=== PATIENT | female | born 1980 | race Two or more races ===

== ENCOUNTER → 2019-12-09 11:32 | Outpatient (CLI) | payer OTHER, SELFPAY ==
--- NOTE | ~2019-12-09 | US_ITS ---
EXAMINATION: US pelvic complete w TV DATE: 12/09/2019 13:58 INDICATION: Pelvic pain Comparison:No prior studies for comparison. TECHNIQUE: Multiple transabdominal and endovaginal sonographic images of the pelvis performed. FINDINGS: The uterus measures 8.7 x 4.1 x 5.7 cm. The endometrial complex measures 1.2 cm. The right ovary measures 3.7 x 2.6 x 4.1 cm and the left ovary measures 3.1 x 2.8 x 3.1 cm. There is a 2.1 cm right ovarian cyst. There is free fluid in the pelvis. There are no abnormal masses seen on either side. IMPRESSION: 1. Mild endometrial thickening measuring 1.2 cm. 2: 2.1 cm right ovarian cyst. Reviewed, dictated and finalized at location A.
--- NOTE | ~2019-12-09 | US_ITS ---
US abdomen complete DATE: 12/09/2019 12:09 INDICATION: Flank pain for 6 months. TECHNIQUE: Real time imaging of the abdomen. COMPARISON: 01/10/2016 CT abdomen pelvis FINDINGS: No hepatic, splenic, pancreatic or renal space-occupying mass lesion is evident. No gallsto bhaskar, gallbladder wall thickening or abnormal pericholecystic fluid collection. Negative sonographic M urphy's sign. The common bile duct measures 4 mm. No hydronephrosis. Normal caliber of the abdominal aorta. IMPRESSION: Negative examination Reviewed, dictated and finalized at Location A. Reviewed, dictated and finalized at location B. IMPRESSION: Negative examination
== END ==
PROVIDERS: PCP Emergency Medicine; Visit Provider Emergency Medicine
DX: R10.2 Pelvic and perineal pain (principal); N83.201 Unspecified ovarian cyst, right side
CPT/HCPCS: 76700; 76830; 76856

== ENCOUNTER → 2019-12-23 09:07 | Outpatient (CLI) | payer OTHER, SELFPAY ==
--- NOTE | ~2019-12-23 | CT_ITS ---
EXAMINATION: CT abdomen pelvis wo con DATE: 12/23/2019 09:25 INDICATION: Generalized abdominal and pelvic pain, left flank pain. Abnormal lab tests. TECHNIQUE: Computed tomography (CT) of the abdomen and pelvis was performed without intravenous contr ast. Automated exposure control and iterative reconstruction technique were employed. Exam dose: 450 .38 mGy-cm total exam DLP. COMPARISON: 01/10/2016 CT abdomen pelvis 12/09/2019 abdominal ultrasound complete 12/09/2019 pelvic ultrasound FINDINGS: The lung bases are clear of infiltrate or consolidation. Normal heart size. No pericardial or pleural effusion. The liver, gallbladder, bile ducts, pancreas, pancreatic duct, spleen and adrenal glands are unremark able. No renal mass lesion or urinary tract calculus or hydroureteronephrosis is evident on this limited no ncontrast examination. The urinary bladder, uterus and adnexal areas are unremarkable. Normal caliber of the abdominal aorta. No intraperitoneal, retroperitoneal or pelvic mass lesion or a denopathy or ascites. The appendix appears normal. There is a prominent amount of fecal material within the colon. No bowel obstruction, bowel wall thickening, pneumatosis or intraperitoneal free air is detected. Small fat-containing umbilical hernia. Included skeletal structures are unremarkable. IMPRESSION: No urinary tract calculus or hydroureteronephrosis or other significant abnormality the abdomen or pelvis Reviewed, dictated and finalized at Location A. Reviewed, dictated and finalized at location B. IMPRESSION: No urinary tract calculus or hydroureteronephrosis or other signif icant abnormality the abdomen or pelvis
== END ==
PROVIDERS: PCP Emergency Medicine; Visit Provider Emergency Medicine
DX: R10.9 Unspecified abdominal pain (principal)
CPT/HCPCS: 74176

== ENCOUNTER 2021-09-30 13:59 | Emergency (ER) | payer BC, SELFPAY ==
[2021-09-30] VITALS (68 sets, daily range): BP systolic 97–122; BP diastolic 57–72; PULSE 73–106; RESP 10–20; O2SAT 98–100
--- NOTE | ~2021-09-30 | CT_ITS ---
EXAMINATION: CT brain wo con DATE: 09/30/2021 15:03 INDICATION: Altered mental status. Overdose. TECHNIQUE: Computed tomography (CT) of the head was performed without intravenous contrast. The mA wa s adjusted according to patient size. Iterative reconstruction technique was employed. The dose-lengt h product was 605.33 mGy-cm. COMPARISON: None FINDINGS: There is no intracranial hemorrhage, acute infarction, or abnormal intracranial mass lesion . The ventricles are normal in size. The orbits are normal. There is mild mucosal thickening in the p aranasal sinuses. The mastoid air cells are normal. IMPRESSION: 1. Normal brain. Reviewed, dictated and finalized at location B. IMPRESSION: 1. Normal brain.
--- NOTE | 2021-09-30 14:02 | PC.NURSE ---
Java Development Team Lead saw patient being brought in by family member. Patient was lying her head on family member shoulder and dragging her feet. [employer] Team Lead assisted patient into a wheelchair and registered patient based off family member's given information. Patient only responsive to painful stimuli. Patient would only open eyes to hard sternal rub. [employer] Development Team Lead called ADAIR Riley, charge nurse and patient taken back by ADAIR Wright to room 14.
--- NOTE | 2021-09-30 14:07 | ECG_ITS ---
Measurements Intervals [place] Rate: 84 P: 71 ID: 131 QRS: 58 QRSD: 85 T: 51 QT: 361 QTc: 427 Interpretive Statements SINUS RHYTHM POSSIBLE LEFT ATRIAL ENLARGEMENT BASELINE ARTIFACT- I, III BORDERLINE ECG Electronically Signed On 09-30-2021 14:26:39 CDT by Brooks Currie D.O.
[2021-09-30 14:15] LABS: Basophils Percent Auto 0.2 % (0.2-1.2); Eosinophils Percent Auto 0.3 % (0-4.4); Hematocrit 38.9 % (37.0-47.0); Hemoglobin 12.5 g/dL (12.0-15.0); Immature Granulocyte Absolute 0.03 K/mm3 (0.00-0.031); Immature Granulocyte Percent A 0.3 % (0-0.5); Lymphocytes Absolute Auto 1.48 K/mm3 (0.9-3.2); Lymphocytes Percent Auto 15.5 % (18.3-44.2); Mean Corpuscular HGB Conc 32.1 g/dl (32-36); Mean Corpuscular Hemoglobin 30.1 pg (26-34); Mean Corpuscular Volume 93.7 fl (80-100); Mean Platelet Volume 11.9 fl (7.4-10.4); Monocytes Absolute Auto 0.6 K/mm3 (0.1-0.6); Monocytes Percent Auto 6.1 % (2.6-8.5); Neutrophils Absolute Auto 7.4 K/mm3 (1.3-6.7); Neutrophils Percent Auto 77.6 % (45.5-73.1); Platelet Count Result 224 k/mm3 (150-375); Red Blood Count 4.15 M/mm3 (4.2-5.4); Red Cell Distribution Width 13.2 % (11.5-14.5); White Blood Count 9.5 K/mm3 (4.5-10.0)
[2021-09-30 14:24] LABS: Glucose Point of Care 81 mg/dl (65-105)
[2021-09-30 14:31] LABS: Alanine Aminotransferase 15 U/L (4-35); Albumin Level 4.6 g/dL (3.5-5.1); Alkaline Phosphatase 58 U/L (38-126); Anion Gap 8 mmol/L (8-16); Aspartate Amino Transferase 26 U/L (14-36); Bilirubin,Total 0.3 mg/dL (0.2-1.3); Blood Urea Nitrogen 9 mg/dL (7-17); Calcium 9.4 mg/dL (8.4-10.2); Carbon Dioxide 25 mmol/L (22-30); Chloride 104 mmol/L (98-107); Estimated CRCL calculation 76 ml/min; Estimated Glomerular Filt Rate > 60; Glucose 99 mg/dL (65-110); Potassium 4.1 mmol/L (3.4-5.0); Sodium 137 mmol/L (137-145)
[2021-09-30 14:32] LABS: Acetaminophen 29 ug/mL (10-30); Ethanol < 10 mg/dL (<10); Salicylate < 1.0 mg/dL (2-20)
[2021-09-30 14:34] LABS: Appearance Urine Clear (Clear); Bilirubin Urine Negative (Negative); Blood Urine 2+ (Negative); Color Urine Yellow (Yellow); Glucose Urine UA Negative (Negative); Ketones Urine Negative (Negative); Leukocyte Esterase Ur Negative LEU/UL (Negative); Nitrate Urine Negative (Negative); Protein Urine Negative (Negative); Specific Grav Ur 1.015 (1.001-1.035); Urobilinogen Urine 0.2 mg/dL (<2.0)
[2021-09-30 14:36] LABS: Mucus Urine Rare /lpf; RBC Urine >75 /hpf (0-2); Squamous Epithelial Cell Urine Rare /hpf (Few); WBC Urine 0-3 /hpf
[2021-09-30 14:40] LABS: Add Urine Microscopic? YES
[2021-09-30 14:46] LABS: Amphetamine Screen Urine Negative (Negative); Barbiturate Screen Urine Negative (Negative); Benzodiazepines Screen Urine Negative (Negative); Cannabinoid Screen Urine Negative (Negative); Cocaine Screen Urine Negative (Negative); Methadone Screen Urine Negative (Negative); Opiate Screen Urine Negative (Negative); Phencyclidine Screen Urine Negative (Negative)
--- NOTE | 2021-09-30 14:49 | ED.OVERDOSE ---
HPI - Overdose General Chief Complaint: Overdose <Yessy Cox PA-C - Last Filed: 09/30/21 19:14> Stated Complaint: overdose, Tylenol PM <Yessy Cox PA-C - Last Filed: 09/30/21 19:14> Time Seen by Provider: 09/30/21 14:07 <Yessy Cox PA-C - Last Filed: 09/30/21 19:14> Source: patient and family <JOSE Skinner Last Filed: 09/30/21 19:14> Mode of arrival: wheelchair <JOSE Skinner Last Filed: 09/30/21 19:14> Limitations: clinical condition <JOSE Skinner Last Filed: 09/30/21 19:14> History of Present Illness HPI Narrative: This is a 40 year old female that presents to the ER for an intentional overdose about 20 minutes prior to arrival. Patient's gives the history. Reportedly patient locked herself in the bathroom and cut her left wrist. Also took multiple pills. He was able to get the door to the bathroom open and try to make her vomit. Reports she vomited up about 6 capsules of Tylenol PM. Does report she has been having suicidal ideations over the last several months. She does not have any previous history of suicide attempts or psychiatric hospitalizations. Patient does not want to provide any history and is tearful at this time. <Yessy Cox PA-C - Last Filed: 09/30/21 19:14> Related Data Allergies/Adverse Reactions: Allergies Allergy/AdvReac Type Severity Reaction Status Date / Time No Known Allergies Allergy Unknown Verified 10/17/15 06:46 <JOSE Skinner Last Filed: 09/30/21 19:14> Review of Systems Review of Systems: CONSTITUTIONAL: Denies fever PSYCHIATRIC: Reports depression. <JOSE Skinner Last Filed: 09/30/21 19:14> All systems reviewed & are unremarkable except as noted in HPI and below <JOSE Skinner Last Filed: 09/30/21 19:14> [facility] Past Medical History Medical History: Medical History (Updated 10/01/21 @ 05:22 by Kamran Shearer MD) No active medical problems <Yessy Cox PA-C - Last Filed: 09/30/21 19:14> Social History Social History: Social History (Updated 09/30/21 @ 14:59 by Yessy Cox PA-C) Substance use: never Substance use type: does not use <Yessy Cox PA-C - Last Filed: 09/30/21 19:14> Exam Narrative: GENERAL: Well-appearing, well-nourished HEAD: Normocephalic, atraumatic. EYES: PERRLA and EOMI. ENT: Nares clear, no rhinorrhea or epistaxis. Mucous membranes moist. Oropharynx without tonsillar hypertrophy exudate or other lesions. Bilateral TMs pearly ellington non-bulging NECK: Supple. No adenopathy or masses. CHEST: Clear to auscultation. No respiratory distress. No wheezes rales or rhonchi HEART: Regular rate and rhythm. No murmur heard. Normal peripheral pulses. EXTREMITIES: Normal range of motion. No edema. 1.5 cm superficial laceration to the left ventral surface of the wrist SKIN: Warm, dry, no rash. NEURO: No focal deficits. Alert and oriented x3. Cranial nerves II through XII grossly intact PSYCH: Obtunded, tearful <Yessy Cox PA-C - Last Filed: 09/30/21 19:14> Course Reevaluation(s) Reevaluation #1: Patient medically cleared and stable to see crisis manual arts therapy teacher and to be admitted to psychiatric facility. <Kamran Shearer MD - Last Filed: 10/01/21 06:36> Date: 09/30/21 <Kamran Shearer MD - Last Filed: 10/01/21 06:36> Time: 22:21 <Kamran Shearer MD - Last Filed: 10/01/21 06:36> Reevaluation #2: Accepted to [facility] by Dr. Flores. <Kamran Shearer MD - Last Filed: 10/01/21 06:36> Date: 10/01/21 <Kamran Shearer MD - Last Filed: 10/01/21 06:36> Time: 05:22 <Kamran Shearer MD - Last Filed: 10/01/21 06:36> Vital Signs Vital signs: Vital Signs Pulse Rate 93 09/30/21 14:03 Respiratory Rate 12 09/30/21 14:03 Pulse Oximetry 100 09/30/21 14:03 Pulse Rate 85 10/01/21 01:46 Respiratory Rate 15 10/01/21 01:46 Blood P
--- NOTE | 2021-09-30 14:53 | PC.NURSE ---
Spoke with ADAIR Molina at [place] [facility]. She advised obtaining a repeat Tylenol level at 4 hours and at 6 hours. She also advised obtaining an EKG. Otherwise, initiate supportive care. EDP updated on [place] [facility] recommendations.
[2021-09-30] MEDS: SODIUM CHLORIDE 0.9% IV 1,000 ML 999 ML IV CONT (15:13)
[2021-09-30 18:30] LABS: Acetaminophen 22 ug/mL (10-30)
--- NOTE | 2021-09-30 18:36 | PC.NURSE ---
Spoke with Tracy with [facility] and update provided. Tylenol levels decreasing
--- NOTE | 2021-09-30 19:38 | PC.NURSE ---
Patient report given to ADAIR Allen. All questions answered and care of pt transferred.
[2021-09-30 20:30] LABS: Acetaminophen 13 ug/mL (10-30)
--- NOTE | 2021-09-30 22:20 | PC.NURSE ---
PER ERP DR HASSAN PT IS MEDICALLY CLEAR AT THIS TIME.
--- NOTE | 2021-09-30 22:21 | PC.NURSE ---
Artificial Inseminator spoke with poison control and updated latest Tylenol level. Per Dr. Shearer patient has been medically cleared and com writer updated poison control on patient's medically cleared status.
--- NOTE | 2021-09-30 22:26 | PC.NURSE ---
VOICEMAIL LEFT FOR CRISIS TO [facility] PATIENT . WILL AWAIT A CALL BACK.
--- NOTE | 2021-09-30 22:32 | PC.NURSE ---
[facility] AT CRISIS WILL SEND AN ADVOCATE OUT [facility].
[2021-09-30 23:29] LABS: SARS-CoV-2 RNA PCR Negative
[2021-10-01] VITALS (16 sets, daily range): BP systolic 97–104; BP diastolic 56–73; PULSE 79–93; RESP 12–21; O2SAT 96–100
[2021-10-01] MEDS: IBUPROFEN 600 MG TABLET PO (01:56)
--- NOTE | 2021-10-01 02:02 | PC.NURSE ---
pt. placed in green scrubs and moved to RM 15
--- NOTE | 2021-10-01 04:26 | PC.NURSE ---
pt. accepted at [facility] by Dr. Mark da silva RN will be contacted for report later. call [phone]
--- NOTE | 2021-10-01 05:38 | PC.NURSE ---
called [facility] to request transport. ETA [id number]
--- NOTE | 2021-10-01 05:43 | PC.NURSE ---
Report given to ADAIR Mckeon pt. accepted by Dr. Flores pt. room assignment and [facility] is 4869-A
--- NOTE | 2021-10-01 07:06 | PC.NURSE ---
[facility] here.
== END 2021-10-01 07:00 ==
PROVIDERS: Emergency Medicine; Physician Assistant; Emergency Provider Emergency Medicine; PCP Internal Medicine
DX: T39.1X2A Poisoning by 4-Aminophenol derivatives, intentional self-harm, initial encounter (principal); S61.512A Laceration without foreign body of left wrist, initial encounter; X78.9XXA Intentional self-harm by unspecified sharp object, initial encounter; Z20.822 Contact with and (suspected) exposure to COVID-19; R94.31 Abnormal electrocardiogram [ECG] [EKG]
CPT/HCPCS: 36415; 51701; 70450; 80053; 80307; 81001; 81025; 82948; 84443; 85025; 93005; 96360; 99285; A9270; C9803; J7030; U0003; U0005

== ENCOUNTER 2022-07-23 15:06 | Outpatient (CLI) | payer BC, SELFPAY ==
--- NOTE | ~2022-07-23 | MM_ITS ---
EXAMINATION: MM screening [facility] BI w marko HISTORY: Screening mammogram TECHNIQUE: Craniocaudal and mediolateral oblique 3-D tomosynthesis images were obtained and synthetic 2-D images were generated. CAD analysis was submitted and interpreted. COMPARISON: No prior mammogram is available for comparison at this institution. BREAST PARENCHYMAL COMPOSITION: The breasts are extremely dense, which lowers the sensitivity of mamm ography. FINDINGS: There is an approximately 12 mm circumscribed mass in the very posterior mid to lower outer left breast. Diagnostic left mammogram and left breast ultrasound examination are recommended. Otherwise no suspicious mass, architectural distortion, malignant calcification, skin thickening or r etraction of either breast is noted. IMPRESSION: 1. 12 mm posterior mid to lower outer left breast mass 2. Diagnostic left mammogram and left breast ultrasound examination are recommended. BI-RADS Category 0: Incomplete: Needs additional imaging evaluation. Reviewed, dictated and finalized at location A. WAREHOUSING ARCHITECT IMPRESSION: 1. 12 mm posterior mid to lower outer left breast mass 2. Diagnostic left mammogram and left breast ultrasound examination are recomme nded. BI-RADS Category 0: Incomplete: Needs additional imaging evaluation.
== END 2022-07-23 15:07 | disposition home or self-care (01) ==
LOC: ANHIMG 15:08
PROVIDERS: PCP Internal Medicine; Visit Provider Internal Medicine
DX: Z12.31 Encounter for screening mammogram for malignant neoplasm of breast (principal); R92.8 Other abnormal and inconclusive findings on diagnostic imaging of breast
CPT/HCPCS: 77063; 77067

== ENCOUNTER 2022-08-14 12:46 | Outpatient (CLI) | payer BC, SELFPAY ==
--- NOTE | ~2022-08-14 | MMUS_ITS ---
EXAMINATION: MM diagnostic [facility] LT w marko, US breast LT complete HISTORY: 12 mm posterior mid to lower outer left breast mass on every 21/07/2022 screening mammogram TECHNIQUE: Additional 3-D tomosynthesis images of left breast were performed and synthetic 2-D images were generated. CAD analysis was submitted and interpreted. High resolution complete left breast ult rasound examination including all 4 quadrants and subareolar area was performed. COMPARISON: July 23, 2022 bilateral screening mammogram BREAST PARENCHYMAL COMPOSITION: The breasts are extremely dense, which lowers the sensitivity of mamm ography. FINDINGS: MAMMOGRAPHIC FINDINGS: Approximately 10 x 12 mm circumscribed mass is confirmed in the posterior mid to lower outer left paula ast at approximately 4:00 position. The circumscribed margins and relatively low-density favor benign process. Sonographic correlation was obtained. ULTRASOUND: 4:00 8 cm from nipple: Circumscribed mildly irregular approximately 1.3 x 1.2 x 0.8 cm mass is confir med at 4:00 8 cm from the nipple. Mildly angular margins are noted. There is no internal vascularity on color flow imaging. There is through transmission. This may be a benign fibroadenoma, but because of the irregular and occasional angular margins, ultrasound-guided biopsy is recommended. No other suspicious mass or shadowing, cyst or other significant sonographic finding of the left de[address] st is detected. IMPRESSION: 1. Mildly irregular circumscribed 1.3 x 1.2 x 0.8 cm mass with occasional angular margins at 4:00 8 c m from nipple 2. Ultrasound-guided biopsy of left breast 4:00 lesion 8 cm from nipple is recommended BI-RADS category 4, suspicious findings. Telephoned the report and ultrasound-guided biopsy recommendation of the left breast 4:00 lesion on 08/14/[address] Mohr. Reviewed, dictated and finalized at location A. IMPRESSION: 1. Mildly irregular circumscribed 1.3 x 1.2 x 0.8 cm mass with occasional angul ar margins at 4:00 8 cm from nipple 2. Ultrasound-guided biopsy of left breast 4:00 lesion 8 cm from nipple is heriberto mmended BI-RADS category 4, suspicious findings. Telephoned the report and ultrasound-guided biopsy recommendation of the le ft breast 4:00 lesion on 08/14/20[address] [place] [address] Mohr.
== END 2022-08-14 12:47 | disposition home or self-care (01) ==
LOC: ANHIMG 12:54
PROVIDERS: PCP Internal Medicine; Visit Provider Internal Medicine
DX: R92.8 Other abnormal and inconclusive findings on diagnostic imaging of breast (principal)
CPT/HCPCS: 76641; 77061; 77065; G0279

== ENCOUNTER 2022-08-22 10:11 | Outpatient (CLI) | payer BC, SELFPAY ==
--- NOTE | ~2022-08-22 | MMUS_ITS ---
US breast biopsy LT w image, MM post biopsy invasive LT EXAMINATION: US GUIDED NEEDLE BIOPSY WITH VACUUM ASSISTANCE DATE: 08/22/2022 11:24 CDT INDICATION: Left breast mass seen on prior examination. Ultrasound-guided core biopsy is requested t o evaluate for malignancy. TECHNIQUE AND FINDINGS: The risks and potential benefits of the procedure were discussed with the patient, and written inform ed consent was obtained. After sterile preparation of the breast, 1% lidocaine was utilized for loca l anesthesia. 1% lidocaine with epinephrine was used for deep anesthesia. A 10G vacuum-assisted biopsy gun needle was advanced through to the outer edge of the region of inter est from a lateral approach utilizing sonographic guidance. A total of 4 tissue core samples were ob tained through the lesion. An Inrad tissue marker clip was then placed at the biopsy site. Hemostasi s was achieved. The patient tolerated procedure well and there was no evidence of immediate complication. The patien t was given verbal instructions partly is from the department. Left breast mammograms to document ti ssue marker clip placement. The tissue samples were submitted to surgical pathology for histologic an alysis. IMPRESSION: 1. Successful ultrasound-guided vacuum-assisted biopsy of left breast mass with tissue marker placem ent. Please refer to pathology report for histologic analysis. Reviewed, dictated and finalized at location A. IMPRESSION: 1. Successful ultrasound-guided vacuum-assisted biopsy of left breast mass wit h tissue marker placement. Please refer to pathology report for histologic anal ysis.
== END 2022-08-22 10:12 | disposition home or self-care (01) ==
PROVIDERS: PCP Internal Medicine; Visit Provider Internal Medicine
DX: R92.8 Other abnormal and inconclusive findings on diagnostic imaging of breast (principal)
CPT/HCPCS: 19083; 88305; A4648

== ENCOUNTER 2023-01-01 10:52 | Outpatient (CLI) | payer BC, SELFPAY ==
--- NOTE | ~2023-01-01 | MR_ITS ---
MRI of the cervical spine Clinical History: Cervicalgia Technique: Axial T2-weighted and gradient images, and sagittal T1-weighted, T2-weighted, and STIR ann-marie ges were acquired. Findings: There is no fracture or subluxation of the cervical spine. Vertebral bodies maintain normal height and line. No suspicious bone marrow signal abnormality seen. At C2-C3 and C3-C4, there is no significant disc bulge or herniation. No spinal canal stenosis, cord compression, or neural foraminal narrowing at these levels. At C4-C5, there is disc osteophyte complex, especially the right paracentral region, which minimally flattens the ventral cord. Bilateral neural foramina are preserved. At C5-C6, there is minimal disc osteophyte complex. No evelyne spinal canal stenosis or cord compressio n. Bilateral neural foramina are preserved. At C6-C7, there is no disc bulge or herniation. No spinal canal stenosis, cord compression, or neural foraminal narrowing. No abnormal signal seen in the spinal cord itself. Paravertebral soft tissues are unremarkable. Impression: Disc osteophyte complex at C4-C5 which minimally flattens the ventral cord in the right paracentral r egion. Reviewed, dictated and finalized at location M. Impression: Disc osteophyte complex at C4-C5 which minimally flattens the ventral cord in t he right paracentral region.
== END 2023-01-01 10:53 | disposition home or self-care (01) ==
PROVIDERS: PCP Internal Medicine; Visit Provider Internal Medicine
DX: M54.2 Cervicalgia (principal); M25.78 Osteophyte, vertebrae
CPT/HCPCS: 72141

== ENCOUNTER 2024-06-27 08:37 | Outpatient (CLI) | payer OTHER, SELFPAY ==
--- NOTE | ~2024-06-27 | MM_ITS ---
EXAMINATION: MM screening darlene BI w marko HISTORY: Screening TECHNIQUE: Craniocaudal and mediolateral oblique 3-D tomosynthesis images were obtained and synthetic 2-D images were generated. CAD analysis was submitted and interpreted. COMPARISON: Comparison to multiple prior studies sequentially, with oldest reviewed study dated 07/23. BREAST PARENCHYMAL COMPOSITION: Dense: The breasts are extremely dense, which lowers the sensitivity of mammography. FINDINGS: There is no evidence of suspicious mass, calcification, or architectural distortion to sugg est malignancy in either breast. There has been no suspicious interval change. IMPRESSION: 1. No mammographic evidence of malignancy. 2. Recommend routine screening mammography in one year. BI-RADS Category 1: Negative Reviewed, dictated and finalized at location A. [facility]
--- OUTSIDE RECORDS SUMMARY | 2024-06-27 08:56 | XMS_ITS | Data Portability ---
Author Organization [facility] [employer], Main Office Address [address] [place] [address] Assessment No assessment recorded. Plan of Treatment Reminders Order Date Submit Date Provider Last Modified By Organization Details Last Modified Time Details Appointments Solv Use Only_Foll ow_Up 2024 02:00P Arsen Mohr MD Not available Not available Not available Any 15 2024 02:00P Arsen Mohr MD Not available Not available Not available Lab CBC w/ auto diff [address], [address] [place], [address], 05/07/2023 08:33:40 CMP, serum or plasma [address], [address] [place] [address], [id number], 05/07/2023 08:33:40 lipid panel, serum [address], [address] [place] [address], [id number], 05/07/2023 08:33:41 SEEMA (antinucl ear antibodie s) screen, serum [address] (Lab), [address] [place], [address], 06/21/2024 15:42:14 rf (rheumato id factor), serum [address] (Lab), [address] [place], [address], 06/21/2024 15:42:14 uric acid, serum or plasma [address] (Lab), [address] [place], [address], 06/21/2024 15:42:15 lipid panel, serum [address] (Lab), [address] [place], [address], 06/21/2024 15:42:15 CMP, serum or plasma [address] (Lab), [address] [place], [address], 06/21/2024 15:42:15 iron + total iron-bind ing capacity (TIBC), serum [address] (Lab), [address] [place], [address], 06/21/2024 15:42:14 CBC w/ auto diff [address] (Lab), [address] [place], [address], 06/21/2024 15:42:14 Referral None recorded. Procedures None recorded. Surgeries None recorded. Imaging MAMMO, screening , bilateral - Please call patient to schedule. [address], [facility] [address], [address], 03/14/2024 17:12:11 MAMMO, screening , digital, bilateral - Please call patient to schedule. [address], [facility] [address], [address], 06/22/2024 10:53:28 Medication Orders pantopraz ole 40 mg tablet,de layed release [address] [facility], [address] [place] [address], [id number], 02/10/2024 12:28:13 citalopra m 10 mg tablet [address] [facility], [address] [place] [address], [address], 04/30/2023 15:36:44 minocycli ne 100 mg capsule [address] [facility], [address] [place] [address], [address], 05/04/2024 15:55:59 citalopra m 10 mg tablet [facility] [address] [place] [address], [address], 02/10/2024 12:30:16 citalopra m 20 mg tablet [address] [facility], [address] [place] [address], [id number], 06/21/2024 15:21:23 Patient TargetsNo targets recorded. Patient Instructions Encounter Date Encounter Id Patient Instructions Last Modified By Organization Details Last Modified Time 05/04/2024 [id number] advance care planning: care instructions Not available 05/04/2024 17:29:24 advance directives: care instructions Not available 05/04/2024 17:29:24 [place] Advance Directives Not available 05/04/2024 17:29:24 risk assessment* Not available 05/04/2024 17:29:24 INFLUENZA VACCIN E Recommended today, but patient declined TD/TDAP Recommended today, patient declined PNEUMONIA VACCINE Ordered Recommend ed today, patient declined Patient will get at local pharmacy/health department Recomm ended at age 65 SHINGLES Ordered Recommend ed today, patient declined Patient will get at local pharmacy/health department MAMMOGRAM: Last Mammogram __ DEXA SCAN Recommended today, but patient declined Ordered No screening indicated CERVICAL SCREENING/PELVIC EXAMINATION Recommended today, but patient declined COLORECTAL SCREENING: Last Colonoscopy Recommended today, but patient declined Ordered Colonoscopy declined. Cologuard ordered No screening necessary until age 45 DEPRESSION SCREENING Negative BMI Overweight Approp riate NUTRITION PHYSICAL ACTIVITY Appropriate physical activity VISION ALCOHOL USE No alcohol use TOBACCO USE LUNG CANCER SCREENING Non Smoker-not indicated SEXUALLY ACTIVE HEPATITIS C SCREENING Not indicated GLUCOSE SCREENING LIPID SCREENING [email or web address] Not available 05/04/2024 16:47:24 Reason for Referral None Reported. Results Created Date Observation Date Name Description Value Unit Range Abnormal Flag Note LastModifiedBy Organization Detail LastModifiedTime Result Notes None recorded. Problems Name Problem SNOMED Code Status Onset Date Resolution Date Notes Provider Name and Address Organization Details Recorded Time Mammograp hy abnormal 987321284 Active 2022 Alisha uribe RMA null, [facility] 3 15:53:31 Insomnia 301248998 Active 2021 Alisha uribe RMA null, [facility] 3 15:53:28 Eruption 881798317 Completed 202112/22/2022 Alisha uribe RMA null, [facility] 3 15:53:25 Pain in left foot 903943256787 107 Completed 202112/22/2022 Alisha Morse an RMA null, [facility] 3 15:53:36 Palpitati ons 46067841 Active 2021 Alisha urieb RMA null, [facility] 3 15:53:39 Anxiety 02545063 Active 2022 Alisha uribe RMA null, [facility] 3 15:53:22 Mixed anxiety and depressiv e disorder 561638663 Active 2022 Jan Mohr MD [address], [place], [address], [facility] 3 16:45:45 Neck pain 22859303 Active 2022 Jan Mohr MD [address], [address], [place], [address], [facility] [facility] 3 16:46:58 Gastroeso phageal reflux disease 699369805 Active 2022 Jan Mohr MD [address], [address], [place], [address], [facility] 3 16:47:26 Acne 96588501 Active 2023 Jan Mohr MD [address], [address], [place], [address], [facility] 4 12:27:35 Anemia 045465903 Active 2023 Jan Mohr MD [address], [address], [place], [address], [facility] 4 16:07:47 Low blood pressure 89176177 Active 2023 Jan Mohr MD [address], [place], [address], [facility] 4 16:13:41 Multiple joint pain 01527695 Active 2024 Jan Mohr MD [address], [address], [place], [address], [facility] 5 15:38:29 Chest pain 42113134 Active 2024 Jan Mohr MD [address], [place], [address], [facility] 5 15:39:33 Problem Notes None recorded. Procedures Surgical History Date Name Laterality Status Provider Name and Address Organization Details Recorded Time 5 Advanced Care Planning completed JUDE Fernandez [facility] 06/21/2024 15:17:37 Advanced Care Planning completed Mitzy Chanel RN [facility] 05/04/2024 16:23:07 Imaging Results None recorded. Procedure Notes None recorded. Medical Equipment None Reported. Medications Name Sig Start Date Stop Date Status Note LastModified by Organization Details LastModified Time naproxen 375 mg tablet TAKE 1 TABLET BY MOUTH EVERY 12 HOURS WITH FOOD OR MILK NEEDED 10/30 completed Not Available Not Available Not Available trazodone 50 mg tablet Take 1 tablet every day by oral route at bedtime. 12/22 completed Not Available Not Available Not Available citalopram 10 mg tablet Take 1 tablet every day by oral route at bedtime. 2023 active Not Available Not Available Not Avai lable minocyclin e 100 mg capsule Take 1 capsule every 12 hours by oral route. 05/04 completed Not Available Not Available Not Available sulfametho xazole 800 mg-trimeth oprim 160 mg tablet TAKE 1 TABLET BY MOUTH TWICE DAILY FOR 7 DAYS 10/30 completed Not Available Not Available Not Available triamcinol one acetonide 0.1 % topical cream APPLY CREAM EXTERNAL LY TO AFFECTED AREA TWICE DAILY 05/04 completed Not Available Not Available Not Available citalopram 20 mg tablet Take 1 tablet every day by oral route. 06/21 completed Not Available Not Available Not Available pantoprazo le 40 mg tablet,del ayed release Take 1 tablet every day by oral route in the morning. 02/09 completed Not Available Not Available Not Available ergocalcif alli (vitamin D2) 1,250 mcg (50,000 unit) capsule TAKE 1 CAPSULE BY MOUTH ONCE A WEEK 10/30 completed Not Available Not Available Not Available doxycyclin e hyclate 100 mg tablet TAKE 1 TABLET BY MOUTH ONCE DAILY FOR 30 DAYS 02/09 completed Not Available Not Available Not Available dicyclomin e 10 mg capsule TAKE 1 CAPSULE BY MOUTH THREE TIMES DAILY NEEDED FOR 30 DAYS 10/30 completed Not Available Not Available Not Available 05/04 completed Not preg... .. Not Available Not Available Not Available Calcium 600 with Vitamin D3 2020 active Not Available Not Available Not Avai lable Zyrtec 10 mg capsule Take 1 capsule every day by oral route. 2022 active as needed Not Available Not Available Not Available Vitals Date Recorded Body height Body mass index (BMI) Body weight Body temperature Systolic blood pressure Diastolic blood pressure Provider Name and Address Organization Details Last Updated DateTime 3 162.56 cm 25.1 kg/m2 38158.4 9 g 97.9 [degF] 122 mm[Hg] 70 mm[Hg] Bobby Minor CMA [employer] [facility] [employer] [facility] 3 16:13:44 Date Recorded Body height Body mass index (BMI) Body weight Heart rate Oxygen saturation Oxygen saturation in Arterial blood by Pulse oximetry Body temperature Systolic blood pressure Diastolic blood pressure Provider Name and Address Organization Details Last Updated DateTime 4 162.56 cm 24.4 kg/m2 66781.8 4 g 76 /min 99 % 99 % 98.7 [degF] 98 mm[Hg] 68 mm[Hg] Lola Irwin [employer] [facility] [employer] 4 11:52:02 Date Recorded Body height Body mass index (BMI) Body weight Heart rate Oxygen saturation Oxygen saturation in Arterial blood by Pulse oximetry Body temperature Systolic blood pressure Diastolic blood pressure Provider Name and Address Organization Details Last Updated DateTime 4 162.56 cm 24 kg/m2 92878.9 3 g 84 /min 99 % 99 % 99.1 [degF] 106 mm[Hg] 62 mm[Hg] JUDE Linares [employer] 4 15:51:49 Date Recorded Body height Body mass index (BMI) Body weight Body temperature Heart rate Oxygen saturation Oxygen saturation in Arterial blood by Pulse oximetry Systolic blood pressure Diastolic blood pressure Provider Name and Address Organization Details Last Updated DateTime 5 162.56 cm 24.5 kg/m2 35112.7 1 g 97.5 [degF] 71 /min 98 % 98 % 116 mm[Hg] 60 mm[Hg] Alisha uribe RMA [employer] 5 15:19:10 Date Recorded Body height Body mass index (BMI) Body weight Body temperature Heart rate Oxygen saturation Oxygen saturation in Arterial blood by Pulse oximetry Systolic blood pressure Diastolic blood pressure Provider Name and Address Organization Details Last Updated DateTime 5 162.56 cm 24.4 kg/m2 09841.1 2 g 97.8 [degF] 77 /min 99 % 99 % 109 mm[Hg] 76 mm[Hg] Kaila hampton [employer] 5 15:41:58 Social History Question Answer Notes LastModified by Organization Details LastModified Time Tobacco Smoking Status Never Smoker Not Available [facility] 23:02:37 Do You Have An Advance Directive? No [id number] Information not available 07/30/2022 What Is Your Level Of Alcohol Consumption? None [email or web address] Information not available 05/04/2024 What Is Your Level Of Caffeine Consumption? Occasional [email or web address] [id number] Information not available 07/30/2022 How Much Tobacco Do You Chew? None [email or web address].0301 [id number] Information not available 07/30/2022 Are You Currently Employed? No [email or web address] Information not available 05/04/2024 What Type Of Diet Are You Following? REGULAR MIGRATION.0301 [id number] Information not available 07/30/2022 Which Illicit Or Recreational Drugs Have You Used? None [email or web address].[id number] [id number] Information not available 07/30/2022 What Is The Highest Grade Or Level Of School You Have Completed Or The Highest Degree You Have Received? 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 0 [email or web address] Information not available 05/04/2024 Have There Been Any Changes To Your Family Or Social Situation? Yes Daughter Getting (2023) [email or web address] Information not available 05/04/2024 What Is The Fluoride Status Of Your Home? Fluoridated [email or web address] Information not available 05/04/2024 Are There Any Guns Present In Your Home? No [email or web address] Information not available 05/04/2024 Do You Use Insect Repellent Routinely? Yes [email or web address] Information not available 05/04/2024 Where Do You Live? SingleLevelHouse [email or web address] Information not available 05/04/2024 Do You Have A Medical Power Of Reclamation Engineer? No [email or web address] Information not available 05/04/2024 What Was The Date Of Your Most Recent Tobacco Screening? 05/04/2024 [email or web address] Information not available 05/04/2024 How Many Children Do You Have? 2 [email or web address] Information not available 05/04/2024 Do You Have Any Pets? Yes [email or web address] Information not available 05/04/2024 What Is Your Relationship Status? [email or web address] Information not available 05/04/2024 Do You Use Your Seat Belt Or Car Seat Routinely? Yes [email or web address] Information not available 05/04/2024 Are You Sexually Active? Yes [email or web address] Information not available 05/04/2024 Do You Have Smoke And Carbon Monoxide Detectors In Your Home? Yes [email or web address] Information not available 05/04/2024 Are You Passively Exposed To Smoke? No [email or web address] Information not available 05/04/2024 Are There Any Smokers In Your House? No [email or web address] Information not available 05/04/2024 What Types Of Sporting Activities Do You Participate In? None [email or web address] Information not available 05/04/2024 Do You Feel Stressed (tense, Restless, Nervous, Or Anxious, Or Unable To Sleep At Night)? [id number] [email or web address] Information not available 05/04/2024 Do You Use Any Illicit Or Recreational Drugs? No [email or web address] Information not available 05/04/2024 Do You Use Sunscreen Routinely? No [email or web address] Information not available 05/04/2024 Have You Recently Traveled Abroad? No [email or web address] Information not available 05/04/2024 Do You Have Any Dietary Restrictions? No [email or web address] Information not available 05/04/2024 Do You Or Have You Ever Used Any Other Forms Of Tobacco Or Nicotine? No [email or web address] Information not available 05/04/2024 Sex: Female Functional Status Question Answer Note LastModified by Organizat ion Details LastModified Time What is your exercise level? None [id number] Information not available 07/30/2022 Mental Status None recorded. Family History Relationship Description Onset Age of this Age Resolved Age Notes LastModified by Organization Details LastModified Time Mother Diabetes mellitus [id number] Not available 07/30/2022 23:02:44 Mother Essential hypertension MIGRATION.808 [id number] Not available 07/30/2022 23:02:44 Mother Depressive disorder MIGRATION.987 [id number] Not available 07/30/2022 23:02:44 Mother Heart disease MIGRATION.069 [id number] Not available 07/30/2022 23:02:44 Mother Hypothyroidi sm MIGRATION.985 [id number] Not available 07/30/2022 23:02:44 Maternal Uncle Diabetes mellitus MIGRATION.498 [id number] Not available 07/30/2022 23:02:44 Maternal Grandmother Diabetes mellitus MIGRATION.666 [id number] Not available 07/30/2022 23:02:44 Maternal Grandmother Essential hypertension MIGRATION.819 [id number] Not available 07/30/2022 23:02:44 Maternal Grandmother Heart disease MIGRATION.933 [id number] Not available 07/30/2022 23:02:44 Father Essential hypertension MIGRATION.764 [id number] Not available 07/30/2022 23:02:44 Father Hyperlipidem ia MIGRATION.382 [id number] Not available 07/30/2022 23:02:44 Maternal Grandfather Essential hypertension MIGRATION.680 [id number] Not available 07/30/2022 23:02:44 Paternal Grandfather Essential hypertension MIGRATION.181 [id number] Not available 07/30/2022 23:02:44 Paternal Grandfather Heart disease MIGRATION.341 [id number] Not available 07/30/2022 23:02:44 Paternal Grandfather Kidney disease MIGRATION.647 [id number] Not available 07/30/2022 23:02:45 Paternal Grandmother Essential hypertension MIGRATION.261 [id number] Not available 07/30/2022 23:02:45 Paternal Grandmother Heart disease MIGRATION.354 [id number] Not available 07/30/2022 23:02:45 Paternal Aunt Hypothyroidi sm MIGRATION.866 [id number] Not available 07/30/2022 23:02:45 Brother Kidney disease younge r brothe r MIGRATION.928 [id number] Not available 07/30/2022 23:02:45 Medical History No medical history recorded. Gynecological HistoryNo gynecological history recorded. Obstetrics History GPAL:G 0 P 0 0 0 0 Immunizations Vaccine Type Date Status Note Provider Nam e and Address Organization Details Recorded Time SARS-COV-2 (COVID-19) vaccine, UNSPECIFIED 1 completed Not Available [facility] 23:04:05 Past Encounters Encounter ID Performer Location Encounter Start Date Encounter Closed Date Diagnosis/Indication Diagnosis SNOMED-CT Code Diagnosis ICD10 Code Diagnosis Note [id number] [facility] [address] [place] [address] 10/30/2020 00:00:00 10/30/2020 16:03:09 [id number] [facility] [address] [place] [address] 12/18/2020 00:00:00 12/18/2020 15:24:08 [id number] [facility] [address] [address] 05/13/2022 00:00:00 05/13/2022 15:15:46 [id number] Jan Mohr MD [facility] [address] [address] 12/22/2022 15:44:44 12/22/2022 16:52:49 Anxiety 55581580 F41.9 to take citalopram every night and adjust meds in a month Neck pain 77038477 M54.2 radiculopa thy Gastroesop hageal reflux disease 738805169 K21.9 start meds Palpitations 37970914 R0 0.2 better since taking citalopram [id number] Jan Mohr MD [facility] [address] [address] 02/19/2023 14:21:59 02/20/2023 13:16:54 [id number] Jan Mohr MD [facility] [address] [place] [address] 04/29/2023 15:44:39 04/29/2023 17:00:20 Anxiety 89358943 F41.9 meds help Palpitations 60582283 R0 0.2 better since taking citalopram Gastroesop hageal reflux disease 838820101 K21.9 start meds [facility] 072113877 Z00.00 Z13.220 Neck pain 92072968 M54.2 radiculopa thy has improved, no more neck pain, MRI discussed [id number] Jan Mohr MD [facility] Internal [facility] [address] [facility] [place] [address] 02/10/2024 11:14:40 02/10/2024 12:32:07 Anxiety 15202493 F41.9 meds help Acne 24782536 L70.9 Screening mammography 24 066890 Z12.31 Gastroesop hageal reflux disease 354752521 K21.9 improved Mammography abnormal 168 153678 R92.8 neg biopsy, will order routine mammogram [id number] Jan Mohr MD [facility] [address] [facility] [place] [address] 05/04/2024 15:40:42 05/04/2024 16:27:36 Anemia 227341101 D64.9 to take iron daily Anxiety 80602662 F41.9 ^ the dose Low blood pressure 59981 003 I95.9 mild, watch, drink lots of water [facility] 584723994 Z00.00 Depression screening 171 672917 Z13.31 Normal bod y mass index 44519088 Z68.24 [id number] Jan Mohr MD [facility] [address] [facility] [place] [address] 06/21/2024 14:51:34 06/21/2024 15:42:29 Anemia 506148881 D64.9 on iron Anxiety 30250159 F41.9 under control Low blood pressure 33580 003 I95.9 better [facility] 546372060 Z00.00 Mammogram- 08/14/2022 Screening mammography 24 895162 Z12.31 Multiple joint pain 3567 8005 M25.50 Chest pain 75652886 R07. 9 non specific , watch [id number] Aleida Collins NP [facility] [address] [place] [address] 06/24/2024 15:28:30 06/24/2024 16:09:39 Gynecologic examination 21657072 Z01.419 pap with HR HPV orderedmam mogram is scheduled next weekdiscus sed f/u if any questions or problems voiced cramping sensations not painful at this time, and advised to keep a diary of symptoms and f/u if painful can f/u Health Concerns Section Related Observation LastModified by Organization Detai ls LastModified Time None Recorded Concern Status LastModified by Organization Details LastModified Time None Recorded Advance Directives Directive N: Payers Encounter Date Sequence Insurance Name Policy Number Policy Delong Covered Member ID Delong Member ID Guarantor Name 04/29/2023 1 [place] [id number] Zenonindra Kyra [id number] Bigya Kyra 02/10/2024 1 [place] [id number] Zenonindra Kyra [id number] Bigya Kyra 05/04/2024 1 [place] [id number] Shashindra Kyra [id number] [facility] 06/21/2024 1 [facility] [id number] Bigya P Kyra [id number] [facility] 06/24/2024 1 [facility] [id number] Bigya P Kyra [id number] Bigya Kyra Notes Date Note Type Note Provider Name and Address Organization Details Recorded Time 04/29/2023 text/html She is here toda y for her 4 month follow up- pt is wanting to discuss MRI results and referral for Hpylori- test. Gets Anxiety- On meds and is helping, sleeps fine, no depression, no suicidal thoughtsMeds- Citalopram 10mg daily Palpitations- BETTER, c/o GERD symptoms, had H. PYLORI in the past, was treated Had Right arm and 3 fingers getting numbness, more at night, also had neck pain on the right, symptoms getting better, no weakness, Previous Note:c/o increased resting heart rate, some palpitations, some sob, has noticed it happens more at night while she is trying to sleep, denies anxiety, no cp or sobIt happen ONLY when goes to bed and tries to sleepTrazodone did not helpshe takes tylenol pm every nightshe had suicidal attempt by ingesting tylenol, no damage, was not on any pych meds, doing well, had some family problems.c/o left foot pain on the big toe area, does not get any swelling, no injury- Jan Mohr MD [address], [address], [place], [address], [employer] 04/29/2023 17:00:32 02/10/2024 text/html She is here toda y for her 4 month follow up- Anxiety- no depression, no suicidal thoughts, no anxietyMeds- Citalopram 10mg daily Palpitations- BETTER, c/o GERD symptoms, had H. PYLORI in the past, was treated, no more symptoms Abn mammogram, s/p biopsy benign ( fibroadenoma ) Acne- coming back again, has used minocycline in the past Previous Note:c/o increased resting heart rate, some palpitations, some sob, has noticed it happens more at night while she is trying to sleep, denies anxiety, no cp or sobIt happen ONLY when goes to bed and tries to sleepTrazodone did not helpshe takes tylenol pm every nightshe had suicidal attempt by ingesting tylenol, no damage, was not on any pych meds, doing well, had some family problems. - Jan Mohr MD [address], [address], [place], [address], [employer] 02/10/2024 12:31:12 05/04/2024 text/html Pt is here today c/o low blood pressure. HomeHas dizziness that comes and goes, bp some times anxiety-Going through a lot of stress, getting . she is on citalopram 10 mg , no depression, no suicidal thoughtsWould like to have labs, worried about her hgb. has been turned away for trying to donate blood, Hb was 9at the donation center. Jan Mohr MD [address], [place], [address], [employer] 05/04/2024 17:29:28 06/21/2024 text/html Pt is here today for check up c/o low blood pressure. now better Anxiety-Was Going through a lot of stress, Daughter got .She was on citalopram 20 mg but now just taking 10mg, no depression, no suicidal thoughtsMEDS- Citalopram 10mg daily c/o hand joint pain, no swelling, some tingling in the handsright first toe pain Gets chest pain, upper middle part x 2 weeks, feels like pain coming from cough but has no cough Jan Mohr MD [address], [address], [place], [address], [employer] 06/21/2024 15:40:25 06/24/2024 text/html Pt is here today for her annual pap smear, and is doing fine Aleida Collins NP [address], [place], [address], [employer] Systems 06/24/2024 16:12:53 OBGyn Episode No OBEpisode recorded.
== END 2024-06-27 08:38 | disposition home or self-care (01) ==
LOC: ANHIMG 08:38
PROVIDERS: PCP Internal Medicine; Visit Provider Internal Medicine
DX: Z12.31 Encounter for screening mammogram for malignant neoplasm of breast (principal)
CPT/HCPCS: 77063; 77067